=== PATIENT | male | born 2000 | race Caucasian/White ===

== ENCOUNTER 2020-02-01 23:25 | Emergency (ER) | payer BC ==
[~2020-02-01] VITALS: Ht 175.3 cm; Wt 61.4 kg
--- NOTE | 2020-02-01 23:39 | PHYS DOC ---
Past Medical History Past Medical History: No Pertinent History Past Surgical History: No Surgical History Smoking Status: Never Smoker Alcohol Use: None Drug Use: Marijuana General Adult EDM: Chief Complaint: DIZZY/LIGHT HEADED HPI: HPI: Patient is a 19 year old male who presents via EMS with report of light headedness and dizziness which occurred approximately 30 min prior to arrival. Reports he has had several episodes like this over the last 3 years. Reports he is supposed to follow with cardiology next month regarding. Denies LOC or headache. Reports some palpitations. Denies trauma. Reports he was smoking THC at the time of episode. Review of Systems: Review of Systems: Constitutional: Denies fever or chills Eyes: Denies change in visual acuity, redness, or eye pain HENT: Denies nasal congestion or sore throat Respiratory: Denies cough or shortness of breath Cardiovascular: Denies chest pain; reports palpitations GI: Denies abdominal pain, nausea, vomiting, or diarrhea : Denies dysuria or hematuria Musculoskeletal: Denies back pain or joint pain Integument: Denies rash or skin lesions Neurologic: Denies headache, focal weakness or sensory changes; reports dizziness Complete systems were reviewed and found to be within normal limits, except as documented in this note. Current Medications: Current Medications Medications (Trade) Dose Ordered Sig/Carlota Start Time Stop Time Status Last Admin Dose Admin Sodium Chloride 1,000 ml @ 1,000 mls/hr 1X ONCE 02/01/20 23:45 02/02/20 00:44 UNV Physical Exam: PE: Constitutional: Well developed, well nourished, no acute distress, non-toxic appearance HENT: Normocephalic, atraumatic Eyes: PERRL, EOMI, conjunctiva normal, no discharge, no nystagmus Neck: Normal range of motion, no tenderness, supple, no meningeal signs Lungs & Thorax: Equal chest rise and fall, no respiratory distress Abdomen: Soft, no tenderness Skin: Warm, dry, no erythema, no rash Extremities: No tenderness, ROM intact, no edema Neurologic: Alert and oriented X 3, no motor or sensory disorder noted, no focal deficits noted Psychologic: Affect anxious, judgement normal EKG: EKG: @2334 NSR at 75bpm, NO ST elevation, QRS 100ms, QT/QTc 348/391ms, incomplete RBBB Radiology/Procedures: Radiology/Procedures: [] Course & Med Decision Making: Course & Med Decision Making Pertinent Lab studies reviewed. (See chart for details) Nontoxic and neurologically intact teenager presents with report of near syncopal episode while smoking THC. NIHSS 0. Reports some palpitations. Patient does appear anxious. Labs obtained and posted to chart. EKG stable. IVF hydration given. Patient stable for discharge home with outpatient follow-up with PCP/cardiology. Advised to discontinue THC use. Discussed findings and plan with patient, who acknowledges understanding and agreement. Ottoon Disclaimer: Chelsie Disclaimer: This electronic medical record was generated, in whole or in part, using a voice recognition dictation system. Departure Departure Impression: Primary Impression: Dizziness Additional Impression: Marijuana abuse Disposition: 01 HOME, SELF-CARE Condition: STABLE Patient Instructions: Dizziness, [id number], Marijuana Abuse and Chemical Dependency Justicifation of Admission Dx: Justifications for Admission: Justification of Admission Dx: N/A NIHSS Stroke Scale NIH Stroke Scale: NIH Stroke Scale Response (Comments) Value Level of Consciousness: 0 Alert/Responsive 0 LOC Questions: 0 Answers both correctly 0 LOC Commands: 0 Performs both tasks 0 Best Gaze: 0 Normal 0 Visual: 0 No visual loss 0 Facial Palsy: 0 Normal, symmetrical 0 Motor - Left Arm 0 No drift 0 Motor - Right Arm 0 No drift 0 Motor - Left Leg 0 No drift 0 Motor: Right Leg 0 No drift 0 Limb Ataxia: 0 Absent 0 Sensory: 0 No loss 0 Best Language: 0 Normal 0 Dysathria: 0 Normal 0 Extinction and Inattention: 0 Normal 0 Total 0 JUDGE,ANGUS Johnson DO Feb 01, 2020 23:39
[2020-02-01] MEDS ORDERED: IV NORMAL SALINE 1000ML BAG 1,000 ML IV ONE (23:45)
[2020-02-01 23:56] LABS: BASO % 0 % (0-3); EOS % 1 % (0-3); HEMATOCRIT 40.9 % (39.0-53.0); HEMOGLOBIN 14.4 g/dL (13.0-17.5); LYMPH # 2.3 x10^3/uL (1.0-4.8); LYMPH % 34 % (24-48); MEAN CORPUSCULAR HEMOGLOBIN 31 pg (25-35); MEAN CORPUSCULAR HGB CONC 35 g/dL (31-37); MEAN CORPUSCULAR VOLUME 89 fL (79-100); MONO # 0.7 x10^3/uL (0.0-1.1); MONO % 10 % (0-9); NEUT # 3.7 x10^3/uL (1.8-7.7); NEUT % 55 % (31-73); PLATELET COUNT 248 x10^3/uL (140-400); RED CELL DISTRIBUTION WIDTH 12.9 % (11.5-14.5); WHITE BLOOD COUNT 6.8 x10^3/uL (4.0-11.0)
[2020-02-02 00:03] LABS: CALCIUM 9.1 mg/dL (8.5-10.1); GFR 96.3; POTASSIUM 3.6 mmol/L (3.5-5.1)
[2020-02-02 00:05] LABS: BILIRUBIN,URINE NEGATIVE (NEG); CLARITY,URINE CLEAR; COLOR,URINE YELLOW; NITRITE,URINE NEGATIVE (NEG); PH,URINE 6.5 (<5.0-8.0); PROTEIN,URINE NEGATIVE (NEG-TRACE)
[2020-02-02 00:08] LABS: SQUAMOUS EPITHELIAL CELL,UR OCC /LPF
[2020-02-02 00:09] LABS: ALBUMIN 4.5 g/dL (3.4-5.0); ALBUMIN/GLOBULIN RATIO 1.6 (1.0-1.7); MAGNESIUM 1.9 mg/dL (1.8-2.4); TOTAL BILIRUBIN 1.2 mg/dL (0.2-1.0); TOTAL PROTEIN 7.4 g/dL (6.4-8.2)
[2020-02-02 00:09] LABS: BACTERIA,URINE 0 /HPF (0-FEW); RBC,URINE RARE /HPF (0-2); WBC,URINE RARE /HPF (0-4)
[2020-02-02 00:22] LABS: BARBITURATES NEG (NEG); BENZODIAZEPINES NEG (NEG); CANNABINOIDS POS (NEG); COCAINE NEG (NEG); METHADONE NEG (NEG); OPIATES NEG (NEG); PHENCYCLIDINE NEG (NEG)
[2020-02-02 00:34] LABS: AMPHETAMINE/METHAMPHETAMINE NEG (NEG)
[2020-02-02 00:44] VITALS: BP 124/58
--- NOTE | 2020-02-04 06:45 | EKG ---
[facility] [address] [place] [address] Test Date: 2020-02-01 Test Time: 23:34:35 Pat Name: SHUBHAM KULKARNI Department: Room: Gender: M Waybill Clerk: : [id number] Requested By: ANGUS JUDGE Order Number: [id number] Reading MD: Measurements Intervals [place] Rate: 75 P: 57 CO: 134 QRS: 64 QRSD: 100 T: 37 QT: 348 QTc: 391 Interpretive Statements SINUS RHYTHM INCOMPLETE RIGHT BUNDLE BRANCH BLOCK NO SPECIFIC ECG ABNORMALITIES RI6.02 No previous ECG available for comparison
== END 2020-02-02 00:45 | disposition home or self-care (01) ==
LOC: ER 23:25
DX: R42 Dizziness and giddiness (principal); F12.10 Cannabis abuse, uncomplicated; R00.2 Palpitations
CPT/HCPCS: 36415; 80053; 80307; 81001; 83735; 85025; 93005; 96360; 99284; J7030